=== PATIENT | male | born 1975 | race Caucasian/White ===

== ENCOUNTER → 2017-05-31 | Outpatient (CLI) | payer OTHER ==
[~2017-05-31] MED LIST: GADOBUTROL 7.5 MMOL/7.5 ML VIAL INT ART ONE; IOHEXOL 300 MG/ML 50 ML VIAL. INT ART ONE; LIDOCAINE 1% Multi-Dose 20 ML VIAL. ID ONE
--- NOTE | 2017-05-31 12:56 | KCIC ---
MR arthrogram of the left shoulder Indication: Left shoulder pain. Pain is chronic. Dislocations. Multiple prior surgeries. Technique: Intra-articular contrast injected into the glenohumeral joint and is reported separately. Patient unable to tolerate Aber positioning. Findings: Moderate motion degradation. Acromioclavicular joint:Intact. Rotator cuff: Mild thickening with heterogeneous signal compatible with tendinosis. The supraspinatus tendon demonstrates some undersurface and to a lesser extent bursal surface irregularity compatible with partial tearing. Accurate measurement of depth is compromised by the motion degradation. No evidence of a through and through complete rupture or retraction. High-grade subscapularis tendon tear. Moderate subscapularis muscle atrophy with fatty infiltration. Subdeltoid bursa: No significant contrast spell. No significant fluid. Articular cartilage: Mild chondromalacia. Labrum: Limited evaluation due to motion. Generalized blunting and irregularity compatible with chronic degeneration or tearing, versus prior surgical change. Biceps tendon: Not visualized. Bones: No lesion or acute fracture. Soft tissue: Susceptibility artifact at the anterior shoulder soft tissue may be due to a surgical clip. Impression: 1. Moderate motion degradation. 2. High-grade subscapularis tendon tear. Partial thickness supraspinatus tendon tear. 3. Generalized labral blunting and irregularity compatible with degeneration or chronic tearing, versus prior surgery. 4. Nonvisualized biceps tendon. Electronically signed by: Tay Hogan MD (05/31/2017 12:52 PM) [id number]
--- NOTE | 2017-05-31 13:41 | KCIC ---
PROCEDURE: Left shoulder injection using fluoroscopic guidance, prior to MR. HISTORY: Shoulder pain. Chronic dislocations. TECHNIQUE: The procedure was explained to the patient as were potential risks, including among others infection, bleeding or allergic reaction. All questions were answered. Informed written and verbal consent was obtained. The shoulder was prepped and draped in the usual sterile manner. Following administration of local anesthetic, a 22-gauge needle was advanced into the anterior shoulder. Following negative aspiration, 12 cc of a solution of 5cc Omnipaque-300 contrast, 5 cc 1% lidocaine, 10 cc normal saline, and 0.1 cc gadolinium was injected without difficulty. The needle was removed. There was good hemostasis at the injection site. The patient left in stable condition without immediate complication. The patient was given postprocedural instructions, and instructed to contact us or the ER if there are any complications. A single spot image is obtained. FLUOROSCOPY TIME:?37 seconds Electronically signed by: Tay Hogan MD (05/31/2017 1:37 PM) [id number]
== END | disposition home or self-care (01) ==
LOC: KCIC 10:17
PROVIDERS: ATTEND Orthopaedic Surgery
DX: S43.005A Unspecified dislocation of left shoulder joint, initial encounter (principal); M75.102 Unspecified rotator cuff tear or rupture of left shoulder, not specified as traumatic; M94.212 Chondromalacia, left shoulder; M62.50 Muscle wasting and atrophy, not elsewhere classified, unspecified site; M24.412 Recurrent dislocation, left shoulder; X58.XXXA Exposure to other specified factors, initial encounter; Y93.89 Activity, other specified; Y92.89 Other specified places as the place of occurrence of the external cause; Y99.8 Other external cause status
CPT/HCPCS: 73040; 73222; A9585; Q9967